=== PATIENT | female | born 1990 | race Caucasian/White ===

== ENCOUNTER 2017-08-27 15:15 | Emergency (ER) | payer MEDICAID ==
[2017-08-27 15:38] VITALS: BP 129/74; PULSE 96; RESP 16; TEMP 98.4; O2SAT 99
--- NOTE | 2017-08-27 16:51 | ED PDOC ---
Upper Extremity Pain/Injury Time Seen by Provider: 08/27/17 16:35 Chief Complaint (Nursing): Finger,Hand,&Wrist Chief Complaint (Provider): Right Thumb Injury History Per: Patient History/Exam Limitations: no limitations Current Symptoms Are (Timing): Still Present Additional Complaint(s): Meenakshi is a 27 y/o female who presents to the ED complaining of a right thumb injury after slamming it in a car door. Patient states she went to [facility] and they recommended an MRI, but she has not been able to find a provider that takes her insurance. She does not want care at this time and is only requesting a referral to an orthopedist who will work with her insurance. PMD: Lucero Muñoz Past Medical History Reviewed: Historical Data, Nursing Documentation, Vital Signs Vital Signs: Last Vital Signs Temp 98.4 F 08/27/17 15:35 Pulse 96 H 08/27/17 15:35 Resp 16 08/27/17 15:35 BP 129/74 08/27/17 15:35 Pulse Ox 99 08/27/17 15:35 - Family History Family History: States: Unknown Family Hx - Allergies Allergies/Adverse Reactions: Allergies Allergy/AdvReac Type Severity Reaction Status Date / Time No Known Allergies Allergy Verified 08/27/17 15:35 Review of Systems ROS Statement: Except As Marked, All Systems Reviewed And Found Negative Musculoskeletal: Positive for: Hand Pain (right thumb) Physical Exam - Reviewed Nursing Documentation Reviewed: Yes Vital Signs Reviewed: Yes - ECG O2 Sat by Pulse Oximetry: 99 (RA) Pulse Ox Interpretation: Normal Medical Decision Making Medical Decision Making: Time: 16:48 Initial Impression: Right Thumb Injury Initial Plan: --Patient is refusing medical care at this time. She will receive two referrals for specialists who may work with her. Scribe Attestation: Documented by Mushtaq Ramos acting as a scribe for Miguel Escalante PA-C MD Scribe Attestation: All medical record entries made by the Scribe were at my direction and personally dictated by me. I have reviewed the chart and agree that the record accurately reflects my personal performance of the history, physical exam, medical decision making, and the department course for this patient. I have also personally directed, reviewed, and agree with the discharge instructions and disposition. Disposition - Clinical Impression Clinical Impression: Fracture (healed) treatment follow-up - Patient ED Disposition Is Patient to be Admitted: No Doctor Will See Patient In The: Office Counseled Patient/Family Regarding: Diagnosis, Need For Followup - Disposition Referrals: Rosa Meier MD [Staff Provider] - Enoc Plata MD [Medical Doctor] - Disposition: Routine/Home Disposition Time: 16:50 Condition: GOOD Forms: [facility] (Korean)
== END 2017-08-27 17:19 | disposition home or self-care (01) ==
LOC: H.ER 15:15
DX: Z87.81 Personal history of (healed) traumatic fracture (principal)